=== PATIENT | male | born 1985 | race Two or more races ===

== ENCOUNTER 2022-03-20 05:16 | Inpatient (IN) | payer OTHER ==
[~2022-03-20] VITALS: Ht 167.6 cm; Wt 82.0 kg
[2022-03-20 05:56] LABS: Basophils # (auto) 0.2 10 ^3/uL (0-0.2); Basophils % (auto) 1.8 % (0.0-2.0); Eosinophils # (auto) 0 10 ^3/uL (0-0.8); Eosinophils % (auto) 0.2 % (0.0-7.0); Hematocrit 46.1 % (41.0-53.0); Hemoglobin 15.8 g/dL (13.5-17.5); Lymphocytes % (auto) 7.7 % (10.0-50.0); Mean Corpuscular Hemoglobin 30.7 pg (28.0-32.0); Mean Corpuscular Hgb Conc. 34.2 g/dL (32.0-36.0); Mean Corpuscular Volume 89.7 fL (80.0-100.0); Monocytes # (auto) 0.5 10 ^3/uL (0-1.3); Monocytes % (auto) 4.2 % (0.0-12.0); Neutrophils # (auto) 11.1 10 ^3/uL (1.6-8.6); Neutrophils % (auto) 86.1 % (37.0-80.0); Nucleated Red Blood Cells % 0.1 %; Red Blood Cells 5.14 10^6/uL (4.5-5.90); Red Cell Distribution Width 14.3 % (11.8-14.3); White Blood Cell 12.9 10^3/uL (4.4-10.8)
[2022-03-20 06:07] LABS: Albumin 4.3 g/dL (3.4-5.0); BUN/Creatinine Ratio 5.2; Calcium 9.4 mg/dL (8.5-10.1); Potassium 4.2 mmol/L (3.5-5.1)
[2022-03-20 06:10] LABS: Bilirubin, Total 0.6 mg/dL (0.2-1.0)
[2022-03-20] MEDS ORDERED: SODIUM CHLORIDE 0.9% 500 ML IVB ONE (07:15)
[2022-03-20] MEDS ORDERED: ALUM & MAG HYDROX-SIMETH LIQ(MAALOX) 30 ML PO ONE (07:15)
[2022-03-20] MEDS ORDERED: PANTOPRAZOLE 40 MG TAB PO ONE (07:15)
[2022-03-20] MEDS ORDERED: SODIUM CHLORIDE 0.9% 1,000 ML IV ONE (07:15)
[2022-03-20] MEDS ORDERED: METOCLOPRAMIDE HCL 5MG/ml INJ 2ml VIAL IV ONE (07:15)
[2022-03-20] MEDS ORDERED: DONNATAL 5ml ORAL Elix (BELLADONNA ALK-PHENOBARB) PO ONE (07:15)
[2022-03-20] MEDS ORDERED: HYDROmorphone HCL 2 MG/ML VL IV ONE (07:15)
[2022-03-20 07:58] LABS: Urine WBC None Seen /hpf (0 - 3)
[2022-03-20 08:17] LABS: Urine Bacteria NONE SEEN /hpf (None Seen); Urine Blood Negative /uL (Negative)
[2022-03-20] MEDS ORDERED: MORPHINE SULFATE INJECTION 2 MG/ML SYRG IV PRN ×2 (11:15→15:15)
[2022-03-20] MEDS ORDERED: NITROGLYCERIN 0.4 MG SL TAB SL PRN (11:15)
[2022-03-20 12:47] LABS: INR 1.04 (0.9-1.15); Partial Thromboplastin Time 24.8 sec (23.6-33.0)
[2022-03-20] MEDS ORDERED: FOLIC ACID 1 MG TAB PO ONE (15:15)
[2022-03-20] MEDS ORDERED: LORazepam 2MG/ML-1ML VIAL IV PRN (15:15)
[2022-03-20] MEDS ORDERED: ONDANSETRON HCL 4 MG/2 ML VIAL IV PRN (15:15)
[2022-03-20] MEDS ORDERED: DOCUSATE SOD 100 MG CAP PO PRN (15:15)
[2022-03-20] MEDS ORDERED: hydrALAZINE HCL 20 MG/ML VL IV PRN (15:15)
[2022-03-20] MEDS ORDERED: LORazepam 0.5 MG TAB PO PRN (15:15)
[2022-03-20] MEDS ORDERED: PANTOPRAZOLE 40 MG/10 ML VIAL INJ IV ONE (15:15)
[2022-03-20] MEDS ORDERED: cefTRIAXone 1GM/50ML D5W 50 ML IV ONE ×2 (15:15→15:34)
[2022-03-20] MEDS ORDERED: THIAMINE 100mg/ml INJ (200mg/2ml VIAL) IV ONE (15:15)
[2022-03-20] MEDS ORDERED: metroNIDAZOLE 500MG/100ML 100 ML IV ONE (15:15)
[2022-03-20] MEDS ORDERED: HYDROcodone-ACET 5/325MG TAB PO PRN (15:15)
[2022-03-20] MEDS ORDERED: MULTIPLE VITAMINS W/ MINERALS TAB PO ONE (15:15)
[2022-03-20] MEDS: SODIUM CHLORIDE 0.9% 1,000 ML IV SCH ×2 (16:12→20:43)
[2022-03-20 16:33] LABS: Magnesium 2.3 mg/dL (1.6-2.6); Phosphorus 4.5 mg/dL (2.5-4.90)
[2022-03-20 18:18] LABS: INR 1.03 (0.9-1.15); Partial Thromboplastin Time 22.5 sec (23.6-33.0)
[2022-03-20 19:04] VITALS: BP 111/71
[2022-03-20] MEDS: metroNIDAZOLE 500MG/100ML 100 ML IV SCH (21:14)
[2022-03-20] MEDS ORDERED: ATORVASTATIN 20 MG TAB PO SCH (22:00)
[2022-03-20 22:14] VITALS: BP 115/71
[2022-03-21 05:00] VITALS: BP 125/74
[2022-03-21] MEDS: metroNIDAZOLE 500MG/100ML 100 ML IV SCH ×4 (05:34→21:13)
[2022-03-21 05:39] LABS: Basophils # (auto) 0.1 10 ^3/uL (0-0.2); Basophils % (auto) 0.8 % (0.0-2.0); Eosinophils # (auto) 0.1 10 ^3/uL (0-0.8); Eosinophils % (auto) 0.8 % (0.0-7.0); Hematocrit 45.4 % (41.0-53.0); Hemoglobin 15.6 g/dL (13.5-17.5); Lymphocytes # (auto) 2.4 10 ^3/uL (0.4-5.4); Mean Corpuscular Hemoglobin 30.9 pg (28.0-32.0); Mean Corpuscular Hgb Conc. 34.4 g/dL (32.0-36.0); Monocytes # (auto) 0.9 10 ^3/uL (0-1.3); Monocytes % (auto) 9.5 % (0.0-12.0); Neutrophils # (auto) 5.8 10 ^3/uL (1.6-8.6); Neutrophils % (auto) 62.9 % (37.0-80.0); Nucleated Red Blood Cells % 0.1 %; Red Blood Cells 5.05 10^6/uL (4.5-5.90); Red Cell Distribution Width 14.1 % (11.8-14.3); White Blood Cell 9.3 10^3/uL (4.4-10.8)
[2022-03-21 05:54] LABS: INR 1.02 (0.9-1.15)
[2022-03-21 05:56] LABS: Magnesium 2.1 mg/dL (1.6-2.6); Potassium 3.8 mmol/L (3.5-5.1)
[2022-03-21 06:03] LABS: Albumin 3.5 g/dL (3.4-5.0); BUN/Creatinine Ratio 6.1; Bilirubin, Total 0.6 mg/dL (0.2-1.0); CRP High Sensitivity 0.68 mg/dL (< 0.3); Calcium 8.5 mg/dL (8.5-10.1); Phosphorus 3.7 mg/dL (2.5-4.90); Uric Acid 5.8 mg/dL (3.5-7.2)
[2022-03-21 06:06] LABS: Thyroid Stimulating Hormone 2.39 uIU/mL (0.358-3.74)
[2022-03-21 09:49] VITALS: BP 128/77
[2022-03-21] MEDS: cefTRIAXone 1GM/50ML D5W 50 ML IV SCH (09:53)
[2022-03-21] MEDS ORDERED: PANTOPRAZOLE 40 MG/10 ML VIAL INJ IV SCH (10:00)
[2022-03-21] MEDS ORDERED: ASPirin 81 mg TAB PO SCH (10:00)
[2022-03-21] MEDS: MULTIPLE VITAMINS W/ MINERALS TAB PO SCH (10:00)
[2022-03-21] MEDS: THIAMINE HCL 100 MG TAB PO SCH (10:00)
[2022-03-21] MEDS: ENOXAPARIN SOD 40 MG/0.4 ML SYRINGE SC SCH (10:00)
[2022-03-21] MEDS: FOLIC ACID 1 MG TAB PO SCH (10:00)
[2022-03-21] MEDS: PANTOPRAZOLE 40 MG/10 ML VIAL INJ IV SCH (10:41)
[2022-03-21 12:51] VITALS: BP 134/76
[2022-03-21] MEDS ORDERED: MORPHINE SULFATE 4 MG/ML SYR/VIAL IV PRN (15:30)
[2022-03-21] MEDS ORDERED: METOCLOPRAMIDE HCL 5MG/ml INJ 2ml VIAL IV PRN (15:30)
[2022-03-21] MEDS ORDERED: BUPIVACAINE 0.25% INJ 50ML VIAL ONE (15:56)
[2022-03-21] MEDS ORDERED: ONDANSETRON HCL 4 MG/2 ML VIAL ONE (16:11)
[2022-03-21] MEDS ORDERED: MIDAZOLAM HCL 2MG/2ML 2ml VIAL (1mg/ml) ONE (16:11)
[2022-03-21] MEDS ORDERED: GLYCOPYRROLATE 0.2 MG/ML 1ML VIAL ONE (16:11)
[2022-03-21] MEDS ORDERED: NEOSTIGMINE 1 MG/ML INJ (10mg/10ML VIAL) ONE (16:11)
[2022-03-21] MEDS ORDERED: SODIUM CHLORIDE LOCK 10 ML ONE (16:11)
[2022-03-21] MEDS ORDERED: MEPERIDINE HCL (25 MG/ML) 1ML VIAL ONE (16:11)
[2022-03-21] MEDS ORDERED: ROCURONIUM 10MG/ML 10ML VIAL IV ONE (16:11)
[2022-03-21] MEDS ORDERED: fentaNYL CITRATE 100 MCG/2 ML VL ONE (16:11)
[2022-03-21] MEDS: HYDROmorphone HCL 2 MG/ML VL IV PRN ×4 (18:12→18:42)
[2022-03-21] MEDS ORDERED: HYDROmorphone HCL 2 MG/ML VL ONE (19:39)
[2022-03-21 21:54] VITALS: BP 123/75
[2022-03-21] MEDS: SODIUM CHLORIDE 0.9% 1,000 ML IV SCH (23:18)
[2022-03-22 05:00] VITALS: BP 129/73
[2022-03-22] MEDS: metroNIDAZOLE 500MG/100ML 100 ML IV SCH (05:41)
[2022-03-22 07:04] LABS: Basophils # (auto) 0 10 ^3/uL (0-0.2); Basophils % (auto) 0.2 % (0.0-2.0); Eosinophils # (auto) 0 10 ^3/uL (0-0.8); Hematocrit 44.7 % (41.0-53.0); Hemoglobin 15.4 g/dL (13.5-17.5); Lymphocytes # (auto) 0.7 10 ^3/uL (0.4-5.4); Lymphocytes % (auto) 7.5 % (10.0-50.0); Mean Corpuscular Hgb Conc. 34.4 g/dL (32.0-36.0); Mean Corpuscular Volume 90.1 fL (80.0-100.0); Monocytes # (auto) 0.5 10 ^3/uL (0-1.3); Monocytes % (auto) 4.8 % (0.0-12.0); Neutrophils # (auto) 8.4 10 ^3/uL (1.6-8.6); Neutrophils % (auto) 87.5 % (37.0-80.0); Nucleated Red Blood Cells % 0.1 %; Red Blood Cells 4.97 10^6/uL (4.5-5.90); Red Cell Distribution Width 13.7 % (11.8-14.3); White Blood Cell 9.6 10^3/uL (4.4-10.8)
[2022-03-22 07:22] LABS: Calcium 8.6 mg/dL (8.5-10.1); Potassium 4.2 mmol/L (3.5-5.1)
[2022-03-22 08:00] VITALS: BP 131/85
[2022-03-22 08:44] VITALS: BP 131/85
[2022-03-22] MEDS: cefTRIAXone 1GM/50ML D5W 50 ML IV SCH (08:51)
[2022-03-22] MEDS: THIAMINE HCL 100 MG TAB PO SCH (10:41)
[2022-03-22] MEDS: PANTOPRAZOLE 40 MG/10 ML VIAL INJ IV SCH (10:41)
[2022-03-22] MEDS: FOLIC ACID 1 MG TAB PO SCH (10:41)
[2022-03-22] MEDS: ENOXAPARIN SOD 40 MG/0.4 ML SYRINGE SC SCH (10:41)
[2022-03-22] MEDS: MULTIPLE VITAMINS W/ MINERALS TAB PO SCH (10:41)
[2022-03-22] MEDS ORDERED: METR500T PO (12:05)
[2022-03-22] MEDS ORDERED: CIPR-173 PO (12:05)
[2022-03-22 12:49] VITALS: BP 131/85
[2022-03-22 13:00] VITALS: BP 122/73
[2022-03-22 13:07] LABS: Albumin 3.5 g/dL (3.4-5.0); BUN/Creatinine Ratio 7.3; Calcium 8.7 mg/dL (8.5-10.1); Potassium 3.9 mmol/L (3.5-5.1)
[2022-03-22 13:10] LABS: Bilirubin, Total 0.5 mg/dL (0.2-1.0); Total Protein 7.1 g/dL (6.4-8.2)
[2022-03-22 13:16] LABS: Bilirubin, Direct 0.2 mg/dL (0-0.2)
== END 2022-03-22 15:00 | disposition home or self-care (01) | DRG 263 ==
LOC: ER 05:16 → OVERFLOW 11:05 → CENTRAL 17:43
PROVIDERS: ADMIT Hospitalist; ATTEND Internal Medicine Pulmonary Disease
PROC: 0FT44ZZ Resection of Gallbladder, Percutaneous Endoscopic Approach (ICD-10-PCS; principal; 2022-03-21 16:15)
DX: K80.00 Calculus of gallbladder with acute cholecystitis without obstruction (principal); K70.10 Alcoholic hepatitis without ascites; E66.9 Obesity, unspecified; E78.5 Hyperlipidemia, unspecified; F10.10 Alcohol abuse, uncomplicated; K29.20 Alcoholic gastritis without bleeding; K52.9 Noninfective gastroenteritis and colitis, unspecified; Z68.29 Body mass index [BMI] 29.0-29.9, adult; R74.8 Abnormal levels of other serum enzymes; Z20.822 Contact with and (suspected) exposure to COVID-19
CPT/HCPCS: 36415; 71046; 76705; 78226; 80048; 80053; 80061; 80076; 81001; 82550; 82728; 83036; 83615; 83690; 83735; 83880; 84100; 84443; 84484; 84550; 85025; 85379; 85610; 85652; 85730; 86141; 86850; 86900; 86901; 87040; 87086; 93005; 96361; 96374; 96375; C9113; G0378; J0696; J2250; J2405; J3490